=== PATIENT | female | born 1955 | race Caucasian/White ===

== ENCOUNTER 2017-05-03 07:42 | Day surgery (SDC) | payer OTHER ==
[~2017-05-03] VITALS: Ht 157.5 cm; Wt 77.3 kg
[~2017-05-03 07:42] MED LIST: ALEVE220 MG; BASAGLAR K100 UNIT/1; BUPR150ER; BUTASPCAFT; Bactrim Ds Tab1 EACH PO; CEPH500 PO; CYCL10 PO; HYDACE7.5; HYDMOR2 PO; Indomethacin50 MG PO; KETO15TC TP; LISI5; METF500; NEOPOLHCSU OT; Naprosyn500 MG PO; Norco 5-325 Ta1 EACH PO; PRED20 PO; PROM25 PO; Prednisone20 MG PO; RXHYDMOR2 PO; SULTRIDS PO
== END 2017-05-03 10:00 | disposition home or self-care (01) ==
LOC: ORSCSDS 07:42
PROVIDERS: Internal Medicine Gastroenterology
PROC: 0DBM8ZX Excision of Descending Colon, Via Natural or Artificial Opening Endoscopic, Diagnostic (ICD-10-PCS; principal; 2017-05-03 09:00)
DX: Z12.11 Encounter for screening for malignant neoplasm of colon (principal); D12.4 Benign neoplasm of descending colon; K57.30 Diverticulosis of large intestine without perforation or abscess without bleeding; Z86.010 Personal history of colon polyps; F17.210 Nicotine dependence, cigarettes, uncomplicated; E11.9 Type 2 diabetes mellitus without complications; Z79.84 Long term (current) use of oral hypoglycemic drugs; Z79.899 Other long term (current) drug therapy
CPT/HCPCS: 82947; 88305; J0330; J1980; J2405; J7120; Q9968

== ENCOUNTER 2018-01-09 07:37 | Emergency (ER) | payer OTHER ==
[~2018-01-09] VITALS: Ht 157.5 cm; Wt 78.0 kg
[2018-01-09] MEDS ORDERED: Cyclobenzaprine5 MG PO (08:40)
== END 2018-01-09 09:49 | disposition home or self-care (01) ==
LOC: ER 07:37
DX: M54.5 Low back pain (principal); G89.29 Other chronic pain; Z88.8 Allergy status to other drugs, medicaments and biological substances; Z79.899 Other long term (current) drug therapy; Z79.4 Long term (current) use of insulin; Z79.84 Long term (current) use of oral hypoglycemic drugs; F17.210 Nicotine dependence, cigarettes, uncomplicated
CPT/HCPCS: 96372; 99283; J1170

== ENCOUNTER 2018-01-09 18:26 | Emergency (ER) | payer OTHER ==
[~2018-01-09 18:26] MED LIST changes: +Cyclobenzaprine5 MG PO
== END 2018-01-09 18:34 | disposition left against medical advice (07) ==
LOC: ER 18:26
DX: Z53.21 Procedure and treatment not carried out due to patient leaving prior to being seen by health care provider (principal)